=== PATIENT | male | born 1945 ===

== ENCOUNTER 2018-07-25 06:30 | Day surgery (SDC) | payer OTHER ==
[~2018-07-25 06:30] MED LIST: ATORVASTATIN CA20 MG PO; COZAAR50 MG PO; FEOSOL325 MG PO; FLONASE SENSIM9.9 ML NS; FOLIC ACID1 MG PO; INDAPAMIDE1.25 MG PO; SODIUM BICARBONATE PO; SYNTH PO; TAMS0.4C PO; [UNRECOGNIZED DRUG - OTHER] PO
[2018-07-25] MEDS ORDERED: PERCOCET 5-3251 EACH PO (11:40)
[2018-07-25] MEDS ORDERED: NEURONTIN300 MG PO (11:40)
[2018-07-25] MEDS ORDERED: ZOFRAN ODT4 MG PO (11:40)
[2018-07-25] MEDS ORDERED: MIRALAX17 GM PO (11:40)
== END 2018-07-25 14:10 | disposition home or self-care (01) ==
LOC: CIR.AMB 06:30
DX: K40.90 Unilateral inguinal hernia, without obstruction or gangrene, not specified as recurrent (principal)

== ENCOUNTER 2018-07-29 10:24 | Emergency (ER) | payer OTHER ==
[~2018-07-29] VITALS: Ht 170.2 cm; Wt 81.6 kg
[~2018-07-29 10:24] MED LIST changes: +MIRALAX17 GM PO; +NEURONTIN300 MG PO; +PERCOCET 5-3251 EACH PO; +ZOFRAN ODT4 MG PO
== END 2018-07-29 16:04 | disposition home or self-care (01) ==
LOC: ER 10:24
DX: N50.811 Right testicular pain (principal); N50.1 Vascular disorders of male genital organs

== ENCOUNTER 2019-10-01 16:49 | Outpatient (CLI) | payer OTHER | END 2019-10-01 16:59 | disposition home or self-care (01) | LOC: LAB 16:49 | DX: R97.20 Elevated prostate specific antigen [PSA] (principal) ==

== ENCOUNTER 2019-12-04 07:13 | Outpatient (CLI) | payer OTHER | END 2019-12-04 07:27 | disposition home or self-care (01) | LOC: SONOGRAMA 07:13 | DX: C61 Malignant neoplasm of prostate (principal); R97.20 Elevated prostate specific antigen [PSA] ==

== ENCOUNTER 2019-12-24 15:24 | Outpatient (CLI) | payer OTHER | END 2019-12-24 15:29 | disposition home or self-care (01) | LOC: TOM 15:24 | DX: C61 Malignant neoplasm of prostate (principal); N20.0 Calculus of kidney; R31.0 Gross hematuria; N40.1 Benign prostatic hyperplasia with lower urinary tract symptoms; F52.21 Male erectile disorder ==

== ENCOUNTER 2020-01-01 07:29 | Outpatient (CLI) | payer OTHER | END 2020-01-01 08:50 | disposition home or self-care (01) | LOC: NUCLEAR 07:29 | DX: C61 Malignant neoplasm of prostate (principal); N40.1 Benign prostatic hyperplasia with lower urinary tract symptoms; F52.21 Male erectile disorder | CPT/HCPCS: 78803; A9503 ==